=== PATIENT | female | born 1955 | race Caucasian/White ===

== ENCOUNTER → 2018-02-27 | Outpatient (CLI) | payer BC ==
[~2018-02-27] MED LIST: ASPI81TA94 PO; BUP75 PO; IOPAMIDOL 76% 75 ML INFUS BTL 75 ML ONE; MULT1CAP59 PO; ROPI0.5T25 PO; TRAZ-156 PO; VENL-248 PO; VENL225T5 PO; [UNRECOGNIZED DRUG - CODE] PO
--- NOTE | 2018-02-28 10:12 | RADIOLOGY IMAGING REPORT ---
FACILITY: [facility] PATIENT NAME: Usha Figueroa : 1955 MR: [id number] V: [id number] EXAM DATE: ORDERING PHYSICIAN: ERLINDA SHAH TECHNOLOGIST: Location: [facility] Patient: Usha Figueroa : 1955 Visit/Account:[id number] Date of Sevice: 02/27/2018 ABDOMEN/PELVIS WITH CONTRAST COMPARISON: None. HISTORY: Left lower quadrant pain, fever and constipation. TECHNIQUE: Axial CT abdomen and pelvis with intravenous contrast. Coronal and sagittal reformats. One of the following dose optimization techniques was utilized in the performance of this exam: aut omated exposure control; adjustment of the mA and/or kV according to patient size; or use of iterativ e reconstruction technique. Specific details can be referenced in the facility's radiology CT exam o perational policy. CONTRAST: 75 mL of IV Isovue-370. FINDINGS: LUNG BASES: 3 mm right middle lobe nodule series 2 image 3. Minor scarring or atelectasis medial seg ment right middle lobe inferiorly. Otherwise negative.. LIVER: A couple of too small to characterize probable cysts in the right and left lobes superiorly. Otherwise negative. BILIARY: Unremarkable gallbladder. No intra-or extrahepatic bile duct dilatat ion. SPLEEN: Unremarkable. PANCREAS: Diffuse fatty deposition. No discrete mass or evidence of acute pancreatitis. ADRENALS: Unremarkable. KIDNEYS: Symmetric enhancement with benign cysts bilaterally. No hydronephrosis or appreciable calcu katt. GI/MESENTERY: Moderate stool throughout the colon consistent with provided history of constipation. No localized inflammatory changes. No fat stranding or free air or free fluid. Normal appendix. No vi sible mass, obstruction, or bowel wall thickening. VASCULAR: Mild aortoiliac calcifications. LYMPH NODES: No enlarged lymph nodes identified. BLADDER: Unremarkable. PELVIC ORGANS: Unremarkable uterus. Neither ovary identified with confidence, probably obscured by f luid-filled loops of bowel. There is a rounded fluid-filled density in the left adnexa on series 2 im age 89, probably representing a fluid-filled patulous segment of bowel, it is difficult to exclude a cystic left ovarian lesions because the ovaries cannot be identified. This measures 3.8 x 4.1 x 4.1 c m. BONES: Mild thoracic and lumbar spine degenerative changes.No acute-appearing fracture or suspicious osseous lesion. OTHER: Negative. IMPRESSION: 1. Moderate diffuse colonic stool consistent with provided history of constipation. No acute bowel p athology. 2. Ovaries are not visualized. A rounded fluid-filled 4.1 cm density in the left adnexa is probably a patulous, fluid-filled segment of bowel but a cystic ovarian lesion cannot be excluded. Pelvic ultr asound follow-up recommended given the provided history and indeterminate nature of this finding. 3. 3 mm right middle lobe nodule. Unless there is a history of previous malignancy or immunosuppress ion no further follow-up should be necessary. Report Dictated By: Carlton Braun at 02/28/2018 9:55 AM Report E-Signed By: Carlton Braun at 02/28/2018 10:08 AM WSN:[id number]
== END ==
LOC: CT 15:04
PROVIDERS: ATTEND Nurse Practitioner Family
DX: K59.00 Constipation, unspecified (principal)
CPT/HCPCS: 36415; 74177; 82565; Q9967

== ENCOUNTER → 2018-03-05 | Outpatient (CLI) | payer BC ==
[~2018-03-05] MED LIST changes: -IOPAMIDOL 76% 75 ML INFUS BTL 75 ML ONE
--- NOTE | 2018-03-05 17:20 | RADIOLOGY IMAGING REPORT ---
FACILITY: [facility] PATIENT NAME: Usha Figueroa : 1955 MR: [id number] V: [id number] EXAM DATE: ORDERING PHYSICIAN: ERLINDA SHAH TECHNOLOGIST: Location: [facility] Patient: Usha Figueroa : 1955 Visit/Account:[id number] Date of Sevice: 03/05/2018 Transvaginal pelvic ultrasound INDICATION: History of endometriosis. COMPARISON: CT examination the abdomen from February 27, 2018 FINDINGS: Uterus measures 5.3 x 3.0 x 4.8 cm. Nabothian cysts are noted. Endometrium is 1 mm unremarkable. There is no free fluid in the cul-de-sac. Urinary bladder is empty. Pelvic vessels appear unremarkable on this examination. Right ovary measures 2.3 x 1.8 x 1.0 cm. Benign-appearing 7 mm calcification is noted. Normal vascula ture right ovary. Left ovary measures 4.6 x 4.6 x 4.1 cm. There is a minimally complex 4.2 cm cyst involving the left ovary which demonstrates minimally comple x fluid with internal echogenicity. The wall has some mild regions of thickening. A 0.47 mm soft tiss ue mural nodularity is associated with its anterior wall. IMPRESSION: 1. There is a minimally complex left ovarian cyst measuring 4.2 cm. CAN STERILIZER consultation and short in terval follow-up in 6-12 weeks is recommended. Report Dictated By: Jose C Melendez MD at 03/05/2018 5:11 PM Report E-Signed By: Jose C Melendez MD at 03/05/2018 5:17 PM WSN:[id number]
== END ==
LOC: US 00:37
PROVIDERS: ATTEND Nurse Practitioner Family
DX: N83.202 Unspecified ovarian cyst, left side (principal)
CPT/HCPCS: 76830

== ENCOUNTER → 2018-03-11 | Outpatient (CLI) | payer BC | LOC: LAB 14:50 | PROVIDERS: ATTEND Obstetrics & Gynecology | DX: N83.202 Unspecified ovarian cyst, left side (principal); R73.01 Impaired fasting glucose | CPT/HCPCS: 36415; 83036; 86304 ==

== ENCOUNTER 2018-03-18 02:45 | Day surgery (SDC) | payer BC ==
[~2018-03-18] VITALS: Ht 167.6 cm; Wt 60.3 kg
[~2018-03-18 02:45] MED LIST changes: +ROPI1TAB36 PO
[2018-03-18 06:21] LABS: PLATELET COUNT, AUTOMATED 151 K/uL (150-450)
[2018-03-18 06:37] VITALS: BP 122/81
[2018-03-18] MEDS ORDERED: BUPIV/EPI 0.25% 1:200,000 50ML INFIL ONE (06:40)
[2018-03-18] MEDS ORDERED: PROPOFOL EMUL(*) 10MG/ML 20 ML 20 ML ONE (06:45)
[2018-03-18] MEDS ORDERED: DEXAMETHASONE SOD 4 MG/ML VIAL ONE (06:45)
[2018-03-18] MEDS ORDERED: ONDANSETRON 4 MG/2 ML VIAL ONE (06:45)
[2018-03-18] MEDS ORDERED: LIDOCAINE MPF 1% 5 ML VIAL ONE (06:45)
[2018-03-18] MEDS ORDERED: METOCLOPRAMIDE 10 MG/2 ML SDV ONE (06:45)
[2018-03-18] MEDS ORDERED: fentaNYL CITR 100 MCG/2 ML AMP ONE ×2 (06:46→08:56)
[2018-03-18] MEDS ORDERED: ROCURONIUM BROM 10 MG/ML 5 ML ONE (07:15)
[2018-03-18] MEDS ORDERED: LOR5/325 PO (07:28)
[2018-03-18] MEDS ORDERED: IBUP800T37 PO (07:28)
[2018-03-18] MEDS ORDERED: SUGAMMADEX SOD 200 MG/2 ML SDV ONE (07:32)
[2018-03-18] MEDS ORDERED: MIDAZOLAM 2 MG/2 ML VIAL IVP PRN (07:55)
[2018-03-18] MEDS ORDERED: FAMOTIDINE 20 MG TAB PO ONE (07:55)
[2018-03-18] MEDS ORDERED: NORMOSOL R SOLN(*) 1000 ML BAG 1,000 ML IV PRN (07:55)
[2018-03-18] MEDS ORDERED: LIDOCAINE/SOD BICARB 8.4% SYR ID ONE (07:55)
[2018-03-18] MEDS ORDERED: KETOROLAC 30 MG/ML VIAL ONE (08:24)
[2018-03-18] MEDS ORDERED: METOCLOPRAMIDE 10 MG/2 ML SDV IVP PRN (08:45)
[2018-03-18] MEDS ORDERED: APAP/HYDROCODONE 325/5 TAB PO PRN (08:45)
[2018-03-18] MEDS ORDERED: LR(*) 1000 ML BAG 1,000 ML IV ONE (08:45)
--- NOTE | 2018-03-18 08:45 | Post Operative Note ---
Operative Note - PATTERN TECHNICIAN Operative Day Date: Mar 18, 2018 Time: 08:44 Physicians Surgeon: Krystal Anesthesia: RIGO Barcenas Diagnosis Pre-Op Diagnosis: Left ovarian cyst Post-Op Diagnosis: Same Procedure Procedure(s): Lscope BSO Specimen Removed:(Maybe N/A): Bilateral fallopian tubes and ovaries Fluids Fluids: 1800cc UOP: 50cc Estimated Blood Loss: 10cc CAILIN MITCHELL MD Mar 18, 2018 08:45
--- NOTE | 2018-03-18 08:45 | Short(Outpt) Discharge Summary ---
Discharge Summary Reason for Hosp/Final Diag: (1) Status post bilateral salpingo-oophorectomy (BSO) Departure Discharge to: Home, Self Care Discharge Instructions Home Meds Active Scripts Hydrocodone Bit/Acetaminophen (HYDROCODON-ACETAMINOPHEN 5-325) 1 Each Tablet, 1- 2 EACH PO Q4-6H Y for pain, #30 TAB 0 Refills Prov:CAILIN RICE MD 03/18/18 Reported Medications Ropinirole Hcl (ROPINIROLE HCL) 1 Mg Tablet, 1 MG PO QHS 03/13/18 Multivitamin (MULTIVITAMINS) 1 Each Capsule, 1 EACH PO, CAPSULE 11/04/17 Trazodone Hcl (TRAZODONE HCL) 50 Mg Tablet, 50 MG PO QHS 11/04/17 Venlafaxine Hcl (VENLAFAXINE HCL ER) 225 Mg Tab.er.24, 225 MG PO QDAY 11/04/17 Discontinued Reported Medications Aspirin (ASPIRIN) 81 Mg Tab.chew, 81 MG PO QDAY, TAB.CHEW 11/04/17 Discontinued Scripts Ropinirole Hcl (ROPINIROLE HCL) 0.5 Mg Tablet, 1.5 TAB PO QHS, #45 TAB 0 Refills Prov:BHAKTI DOMINGO APRNP-C 06/07/14 Follow up Referrals: [facility] - In Two Weeks @ [facility] with Cailin Rice Md Diet: Regular Activity: No Heavy Lifting CAILIN RICE MD Mar 18, 2018 07:30
[2018-03-18 09:45] VITALS: BP 125/78
--- NOTE | 2018-03-18 10:05 | OPERATIVE REPORT 1 ---
EVENT DATE: March 18, 2018 SURGEON: Anayeli Rice M.D. ANESTHESIOLOGIST: Taz Barcenas M.D. ANESTHESIA: General endotracheal tube PREOPERATIVE DIAGNOSIS 1. Left ovarian cyst. 2. Right ovarian calcification. POSTOPERATIVE DIAGNOSIS 1. Left ovarian cyst. 2. Right ovarian calcification. PROCEDURE PERFORMED Laparoscopic bilateral salpingo-oophorectomy. ESTIMATED BLOOD LOSS 10 mL. SPECIMENS Bilateral fallopian tubes and ovaries. IV FLUID 1800 mL. URINE OUTPUT 50 mL. INDICATIONS FOR PROCEDURE This patient is a 62-year-old 4, para 2 who presents with a left ovarian cyst which is complex, measuring 4.2 cm, with some areas of thickening of the wall. Her right ovary also has a 7 mm calcification within it. She had a CA-125 of 23. After discussing these findings, she was offered expected management versus laparoscopic removal of the left ovary only versus laparoscopic removal of both tubes and ovaries. After discussing the risks, benefits and alternatives, the patient did elect to proceed with laparoscopic removal of both tubes and ovaries. She was, therefore, admitted for the same. DESCRIPTION OF PROCEDURE The patient was properly identified and taken to the operating room. She was placed under general anesthesia and placed in the dorsolithotomy position. She was then prepped and draped in the usual fashion for a vaginal assisted laparoscopic procedure. No antibiotics were indicated. SCDs were on and running. The patient's bladder was drained of 50 mL of clear yellow urine. A speculum was then placed in the vagina to visualize the cervix, which was noted to be multiparous and without lesion. The anterior lip was grasped with an Allis clamp and an acorn uterine manipulator was placed without difficulty. The patient was then placed in a more supine position and attention was turned to the laparoscopic portion of the procedure. The infraumbilical region was infiltrated with 0.25% Marcaine with epinephrine. Using a Veress needle, the abdominal cavity was entered using a double click test. Insufflation was then obtained up to 15 mmHg. The 5 mm laparoscope was then introduced under direct visualization. Once the abdominal cavity was confirmed, the pressure was taken to 20 mmHg. A 5 mm incision was made on the patient's left side after infiltration of 0.25% Marcaine with epinephrine. A trocar was then introduced under direct visualization. On the patient's right side, a 11 mm trocar was introduced in the same manner. The abdomen was then surveyed and the liver, gallbladder, stomach and appendix were all visualized and appeared within normal limits. There were no adhesions in the abdomen. The patient was then placed in the Trendelenburg position and the bowel was elevated out of the pelvis. The patient's right tube and ovary appeared within normal limits, although the tube was adhesed to the pelvic sidewall, wrapping around the ovary. Visualization of the left ovary revealed significant adhesions along the pelvic sidewall as well as a large cyst consistent with ultrasound findings. There was no free pelvic fluid. The patient's right tube was then mobilized after clearing the adhesion using a Gyrus. The infundibulum pelvic ligament was then cauterized and transected a Gyrus. The mesosalpinx was then transected as well followed by cauterization and transection of the utero-ovarian ligament. Once the entire adnexal complex was removed, it was packed away in the anterior cul-de-sac for removal later. Attention was then turned to the patient's left side, where the fallopian tube was noted to be free but the left ovary and mass were quite adhered to the pelvic sidewall. The infundibular pelvic ligament was able to be isolated and was cauterized and transected using the Gyrus. A plane was identified between the pelvic sidewall and the mass and was carefully transected, keeping the visualization of the ureter throughout the entire process to ensure it was not being injured. There was an incidental rupture of the cyst as I was trying to stay closer to the cyst wall than the pelvic sidewall. Once the cyst was ruptured, chocolate like fluid was noted to be coming out. Therefore, using suction irrigation, most of this was removed and irrigated. Once this was accomplished, the remaining aspect along the pelvic sidewall was able to be transected, staying in a plane between the peritoneum and the ovary. The utero-ovarian ligament was able to be transected with the Gyrus as well and the final pedicle was able to be removed. This did take some degree of manipulation. However, the ureter was visualized throughout the entire process. After the entire complex was excised and packed away in the anterior cul-de-sac, the ureter was again inspected and noted to be without injury. Copious irrigation was then performed. An EndoCatch bag was then placed through the 11 mm trocar and bilateral adnexa were placed into the bag and the bag was able to be easily removed through the trocar site. This trocar was then reintroduced to allow firming of the pneumoperitoneum. Copious irrigation was again performed and hemostasis was assured on both pedicles. The pneumoperitoneum was then relieved. All three trocar sites were removed. The right aspect of the 11 mm trocar required fascial closure. Therefore, the fascia was grasped with Duncan clamps on either side and 0 Vicryl on a UR-6 needle was utilized to tie down the fascia. Once adequate closure was confirmed, the incisions were closed with a 4-0 Monocryl and the incisions were covered with Dermabond. The acorn uterine manipulator and Allis clamp were then removed. The patient tolerated the procedure well and recovered in the post anesthesia care unit. FERMÍN
[2018-03-18 10:17] VITALS: BP 117/83
[2018-03-18 10:55] VITALS: BP 136/91
[2018-03-18 13:00] VITALS: BP 110/90
[2018-03-18 13:10] VITALS: BP 107/79
[2018-03-18] MEDS ORDERED: IBUPROFEN 800 MG TAB PO SCH (14:00)
== END 2018-03-18 09:46 | disposition home or self-care (01) ==
LOC: OR 02:45
PROVIDERS: ATTEND Obstetrics & Gynecology
DX: N83.202 Unspecified ovarian cyst, left side (principal); E78.5 Hyperlipidemia, unspecified; L40.9 Psoriasis, unspecified; F32.9 Major depressive disorder, single episode, unspecified; F17.210 Nicotine dependence, cigarettes, uncomplicated; G25.81 Restless legs syndrome; N83.8 Other noninflammatory disorders of ovary, fallopian tube and broad ligament
CPT/HCPCS: 36415; 58661; 85025; 88305; J1100; J1885; J2001; J2405; J2704; J2765; J3010; 82310; 82374; 82435; 82565; 82947; 84132; 84295; 84520

== ENCOUNTER → 2019-03-30 | Outpatient (CLI) | payer BC ==
[~2019-03-30] MED LIST changes: +DOCU100C49 PO; +IBUP800T37 PO; +LOR5/325 PO; -TRAZ-156 PO; +TRAZ50TA52 PO
== END ==
LOC: LAB 08:55
PROVIDERS: ATTEND Nurse Practitioner Family
DX: Z01.812 Encounter for preprocedural laboratory examination (principal)
CPT/HCPCS: 36415; 82565

== ENCOUNTER → 2019-03-31 | Outpatient (CLI) | payer BC ==
[~2019-03-31] MED LIST changes: +IOPAMIDOL 76% 100 ML INFUS BTL 100 ML ONE
--- NOTE | 2019-03-31 09:33 | RADIOLOGY IMAGING REPORT ---
FACILITY: [facility] PATIENT NAME: Usha Fgiueroa : 1955 MR: [id number] V: [id number] EXAM DATE: ORDERING PHYSICIAN: ERLINDA SHAH TECHNOLOGIST: [place] [facility] [place] Figueroa : 1955 Visit/Account:[id number] Date of Sevice: 03/31/2019 CT CHEST (CONTRAST) History: Lung nodule, smoking history TECHNIQUE: Contiguous axial images were performed through the chest to the level of the adrenal gla nds following the administration of IV contrast. Coronal and sagittal reformatting was also perform ed.Dose Lowering Technique One of the following dose optimization techniques was utilized in the performance of this exam: Autom ated exposure control; adjustment of the mA and/or kV according to the patient's size; or use of an i terative reconstruction technique. Specific details can be referenced in the facility's radiology C T exam operational policy. Contrast: 75 mL Isovue-370 COMPARISON STUDIES: CT abdomen pelvis February 27, 2018. Lungs / Pleura: The previous noted 3 mm noncalcified nodule anterolateral right middle lobe appears unchanged and is best appreciated on image 217 of series 4. The 6 mm noncalcified nodule anterolateral left lower lobe that appears unchanged best appreciated on image 297. Mild linear stranding in the right middle lobe and right lower lobe appears stable likely representin g scarring or atelectasis Mediastinum/nodes: negative. Heart and vessels: There is mild narrowing at the origin of the left subclavian artery Musculoskeletal / Body wall: Spondylotic changes of the thoracic spine Upper abdomen: Renal cysts bilaterally diffuse fatty replacement of the pancreas IMPRESSION: 3 mm right middle lobe nodule remains stable 6 mm noncalcified nodule left lower lobe also appears stable FLEISCH[employer] SOCIETY FOLLOW-UP GUIDELINES FOR NEWLY DETECTED INCIDENTAL NODULES IN PERSONS 35 YEARS OF AGE OR OLDER. *These recommendations do NOT apply to lung cancer screening, patients with immunosuppression or mike ents with a known primary malignancy. MULTIPLE SOLID NODULES If nodule size is < 6 mm: * Low risk patient ? No routine follow-up. * High risk patient ? Optional CT at 12 months. If nodule size is 6-8 mm: * Low risk patient ? CT at 3-6 months, then consider CT at 18-24 months if no change. * High risk patient ? CT at 3-6 months, then CT at 18-24 months if no change. If nodule size is > 8 mm: * Low risk patient ? CT at 3-6 months, then consider CT at 18-24 months if no change. * High risk patient ? CT at 3-6 months, then consider CT at 18-24 months if no change. LOW RISK PATIENT: Minimal or absent history of tobacco use and of other known risk factors. HIGH RISK PATIENT: Tobacco use, family history of lung cancer, upper pulmonary lobe location of nodul e, presence of emphysema, pulmonary fibrosis, older age. Lelehostanislaw H, Lorrie DP, Burako JM, et al. Guidelines for Management of Incidental Pulmonary Nodules Dete cted on CT Images: From the Fleischner Society 2017. Radiology. [facility] Report Dictated By: Makenzie Aragon MD at 03/31/2019 9:16 AM Report E-Signed By: Makenzie Aragon MD at 03/31/2019 9:27 AM PINGN:NEWVStanislaw
--- NOTE | 2019-03-31 17:01 | RADIOLOGY IMAGING REPORT ---
FACILITY: [facility] PATIENT NAME: ARLEY MEADE : [id number] MR: [id number] V: [id number] EXAM DATE: [id number] ORDERING PHYSICIAN: ERLINDA SHAH TECHNOLOGIST: Riya López PROCEDURE: BILATERAL DIGITAL SCREENING MAMMOGRAM WITH CAD ASSISTED INTERPRETATION & 3D TOMOSYNTHESIS REASON FOR STUDY: Screening FAMILY HISTORY OF BREAST CANCER: None BREAST PROCEDURES/TREATMENTS: None COMPARISON: 05/10/14, 05/03/14, 04/06/13, 04/02/12 VIEWS OBTAINED: Bilateral 2D & 3D full field CC & MLO projections BREAST DENSITY: The breasts are heterogeneously dense which can obscure small masses. MAMMOGRAM FINDINGS: There is a nodular density in the inferior portion of the Left breast in the middle third which may represent an intermammary lymph node however confirmation with Left breast Ultrasound is recommended. IMPRESSION: BIRADS 0: Incomplete, need additional imaging evaluation. Left breast Ultrasound recommended as described. DIAGNOSTIC CATEGORY 0--INCOMPLETE: NEED ADDITIONAL IMAGING EVALUATION. RECOMMENDATIONS: ULTRASOUND: LEFT BREAST. Dictated by: Makenzie Aragon M.D. on 03/31/2019 at 13:51 Transcribed by: KAREN on 03/31/2019 at 14:10 Approved by: Makenzie Aragon M.D. on 03/31/2019 at 16:57 [facility]
== END ==
LOC: RAD 01:37
PROVIDERS: ATTEND Nurse Practitioner Family
DX: R91.1 Solitary pulmonary nodule (principal); R92.8 Other abnormal and inconclusive findings on diagnostic imaging of breast; Z87.891 Personal history of nicotine dependence
CPT/HCPCS: 71260; 77063; 77067; Q9967

== ENCOUNTER → 2019-04-14 | Outpatient (CLI) | payer BC ==
[~2019-04-14] MED LIST changes: -IOPAMIDOL 76% 100 ML INFUS BTL 100 ML ONE
--- NOTE | 2019-04-15 17:14 | RADIOLOGY IMAGING REPORT ---
FACILITY: [facility] PATIENT NAME: ARLEY MEADE : [id number] MR: [id number] V: [id number] EXAM DATE: [id number] ORDERING PHYSICIAN: ERLINDA SHAH TECHNOLOGIST: Huber Hester RDMS, [facility] PROCEDURE:US LEFT BREAST COMPARISON:Prior mammogram 03/31/19. INDICATIONS:Further evaluation. AREA SCANNED: The 3-9 o'clock position of the Left breast. FINDINGS: In the 8:30 position of the Left breast 7cm from the nipple is an ovoid circumscribed slightly lobular cystic mass measuring 6.5 x 3.4 x 5.5mm. The shape and configuration closely paired with the recent mammographic findings. DIAGNOSTIC CATEGORY 2--BENIGN FINDING. RECOMMENDATIONS: ROUTINE MAMMOGRAM AND CLINICAL EVALUATION. IMPRESSION: BIRADS 2: Benign finding. Dictated by: Makenzie Aragon M.D. on 04/14/2019 at 16:49 Transcribed by: DARRYL on 04/15/2019 at 10:04 Approved by: Makenzie Aragon M.D. on 04/15/2019 at 17:11 [facility]
== END ==
LOC: US 01:13
PROVIDERS: ATTEND Nurse Practitioner Family
DX: R92.2 Inconclusive mammogram (principal)